=== PATIENT | female | born 1990 | race Caucasian/White ===

== ENCOUNTER 2023-08-17 23:48 | Emergency (ER) | payer SELFPAY ==
[2023-08-18] VITALS (7 sets, daily range): BP systolic 107–122; BP diastolic 77–87; PULSE 74–93; RESP 16–20; TEMP 36.9; O2SAT 91–100; BMI 32.2
[2023-08-18] MEDS: ipratropium-albuterol 3 mL Neb INHALATION (00:27)
[2023-08-18] MEDS: famotidine 20 mg Tablet 40 MG PO (00:45)
[2023-08-18] MEDS: diphenhydrAMINE 50 mg/mL SDV 1mL IM (00:45)
--- NOTE | 2023-08-18 01:22 | W.ED.ALLEREA ---
HPI - Allergic Reaction General: Chief complaint: Allergic Reaction Stated complaint: Allergic Reaction Time Seen by Provider: 08/18/23 00:13 History of Present Illness: HPI narrative: 33-year-old female who began having raised, red, itchy spots widespread on her body this evening. They cover her chest, back, abdomen, and extremities. They spare her face, however she is itching behind her ears. No known exposures in terms of new foods, medications, detergents, etc. She does note that she had a very stressful evening, but stress does not cause this type of reaction prior. She is mildly short of breath, and believes she is wheezing. Associated symptoms: Deny abdominal pain, hoarseness, nausea or vomiting Review of Systems Const: Denies: fever(s), chills or body aches Eyes: Denies: change in vision ENMT: Denies: throat pain, odynophagia or hoarseness Card: Denies: chest pain or palpitations Resp: Reports: dyspnea and non-productive cough; Denies: productive cough GI: Denies: abdominal pain, nausea or vomiting Skin/Breast: Reports: rash, pruritus and erythema Neuro: Denies: headache(s) Psych: Reports: anxiety Physical Exam Const: COMMON NORMALS: no acute distress GENERAL APPEARANCE: cooperative; not ill appearing and not frail appearing HENMT: COMMON NORMALS: normocephalic, atraumatic and Normal external nose present HEAD & SCALP: normocephalic and atraumatic FACE & SINUS: normal facial exam and face symmetric NOSE: Normal external nose present Eye: COMMON NORMALS: Equal, round and reactive pupils present and EOMs intact bilaterally PUPIL: Yes Equal, round and reactive pupils present Neck/C-Spine: GENERAL: Yes trachea midline Chest: CHEST: Yes Symmetrical chest wall rise Resp: COMMON NORMALS: normal respiratory effort, No retractions and No use of accessory muscles AUSCULTATION: wheezes (Minimal slight) Cardio: COMMON NORMALS: regular rate and regular rhythm RATE: regular rate RHYTHM: regular rhythm GI: COMMON NORMALS: Normal to inspection, nondistended, normoactive bowel sounds present Extremity: COMMON NORMALS: no pedal edema Neuro: NABOR COMA SCALE: document GCS findings [place] coma scale eye opening: Spontaneous [place] coma scale verbal response: Orientated [place] coma scale motor response: Obey commands [place] coma scale total score: 15 SENSORY EXAM: Yes extremities (intact) Psych: COMMON NORMALS: speech normal SPEECH: Yes normal speech Skin: NARRATIVE SKIN EXAM: Widespread urticaria Course Vital Signs: Vital signs: Vital Signs Temperature 98.4 F 08/18/23 00:03 Pulse Rate 89 08/18/23 00:34 Respiratory Rate 16 08/18/23 00:34 Blood Pressure 122/77 08/18/23 00:03 Pulse Oximetry 98 08/18/23 00:34 Oxygen Delivery Me thod Room Air 08/18/23 00:34 MDM - Allergic Reaction Medical Decision Making Patient is beginning to improve after IM Solu-Medrol and Benadryl as well as oral Pepcid. We will continue steroids for the next few days. She is told to take Benadryl scheduled for 24 hours then as needed. Return for any problems. No radiology studies performed this visit Discharge Plan Discharge Patient Disposition: Home Clinical Impression: Urticaria Condition: Stable Prescriptions: New Medrol (Charles) 4 mg tablets,dose pack See Rx Instructions .ROUTE .COMPLEX Qty: 21 0RF Rx Instructions: orally per package directions Discharge Orders: Discharge ED (Routine); Ordered 08/18/23 Ordered By: Winston Worrell Patient Instructions: Urticaria (ED) Activity Restrictions/Additional Instructions: Medications as directed. Take Benadryl 25 mg (1 pill) every 6 hours scheduled for the first 24 hours, then as needed following. Return for shortness of breath, throat or chest tightening, tongue or face swelling, any other concerning symptoms. Coding Level of Care Code ED Breaker Layer for Osiel Lassiter
== END 2023-08-18 01:34 | disposition home or self-care (01) ==
PROVIDERS: Emergency Provider Emergency Medicine
DX: L50.9 Urticaria, unspecified (principal)
CPT/HCPCS: 94640; 96372; 99284; J1200; J2930